=== PATIENT | male | born 1960 | race Caucasian/White ===

== ENCOUNTER 2019-05-08 07:58 | Emergency (ER) | payer SELFPAY ==
[~2019-05-08] VITALS: Ht 182.8 cm; Wt 93.9 kg
--- NOTE | ~2019-05-08 | EKG ---
[place], [place] ELECTROCARDIOGRAM REPORT NAME: DIANA LIN UNIT #: [id number] ROOM: DOCTOR: EPIPHANY DRAFT REPORT BIRTHDATE: [birth year] [facility] Test Date: 2019-05-08 Test Time: 07:58:30 Pat Name: DIANA LIN Department: Room: Gender: Service Parts Coordinator: : 1960 Requested By: MAX QUIJANO Order Number: [id number] Reading MD: Liss Pompa Measurements Intervals [place] Rate: 82 P: 68 FL: 171 QRS: 35 QRSD: 88 T: 54 QT: 366 QTc: 428 Interpretive Statements Sinus rhythm Left atrial enlargement Electronically Signed On 05-08-2019 12:02:44 PDT by Liss Pompa CM:EKGRPT:ELECTROCARDIOGRAM REPORT [id number] MAX BOOKER DRAFT REPORT MAX QUIJANO M.D.
--- NOTE | ~2019-05-08 | EKG ---
[place], [place] ELECTROCARDIOGRAM REPORT NAME: DIANA LIN UNIT #: [id number] ROOM: DOCTOR: EPIPHANY DRAFT REPORT BIRTHDATE: [address] [facility] Test Date: 2019-05-08 Test Time: 11:20:19 Pat Name: DIANA LIN Department: Room: Gender: Home Appliance Installer: Zahra Fisher : 1960 Requested By: MAX QUIJANO Order Number: [id number] Reading MD: Liss Pompa Measurements Intervals [place] Rate: 74 P: 65 RI: 217 QRS: 8 QRSD: 89 T: 61 QT: 391 QTc: 434 Interpretive Statements Sinus rhythm Borderline prolonged RI interval Electronically Signed On 05-08-2019 12:03:10 PDT by Liss Pompa CM:EKGRPT:ELECTROCARDIOGRAM REPORT [id number] MAX BOOKER DRAFT REPORT MAX QUIJANO M.D.
[~2019-05-08 07:58] MED LIST: ASPIRIN81 M1 PO; COREG6.25 MG PO; FISH OIL500 M1 PO; IMDUR SA30 MG PO; LISINOPRIL5 MG PO; LOPID600 M1 PO; OMEPRAZOLE20 M2 PO; PLAVIX75 M1 PO; SYNTHROID25 MCG PO
[2019-05-08 08:13] LABS: BASO # 0.1 10*3/uL (0.0-0.1); BASO % 0.5 % (0.0-1.0); EOS # 0.2 10*3/uL (0.0-0.4); EOS % 1.9 % (1.0-4.0); HEMATOCRIT 45.2 % (42.0-52.0); HEMOGLOBIN 15.1 g/dl (14.0-18.0); LYMPH # 2.7 10*3/uL (1.3-4.4); LYMPH % 29.1 % (27.0-41.0); MEAN CELL VOLUME 88.5 fl (80.0-94.0); MEAN CORPUSCULAR HGB 29.5 pg (27.0-31.0); MEAN CORPUSCULAR HGB CONC 33.4 g/dl (33.0-37.0); MEAN PLATELET VOLUME 10.4 fl (9.6-12.3); MONO # 0.6 10*3/uL (0.1-1.0); MONO % 6.6 % (3.0-9.0); NEUT # 5.7 10*3/uL (2.3-7.9); NEUT % 61.6 % (47.0-73.0); PLATELET COUNT AUTOMATED 236 10*3/uL (130-400); RED BLOOD COUNT 5.11 10*6/uL (4.50-5.90); RED CELL DISTRI WIDTH 13.1 % (0-14.5); WHITE BLOOD COUNT 9.3 10*3/uL (4.8-10.8)
[2019-05-08 08:28] LABS: ACT PARTIAL THROMBO TIME 25.4 SECONDS (20.0-32.1)
[2019-05-08 08:30] LABS: ALBUMIN 3.8 gm/dl (3.1-4.5); ALKALINE PHOSPHATASE 122 U/L (45-117); BUN 12 mg/dl (7-24); CHLORIDE 105 mmol/L (98-107); CREATININE 1.36 mg/dL (0.70-1.30); SGOT/AST 74 IU/L (3-35); SGPT/ALT 58 U/L (12-78); SODIUM 141 mmol/L (136-145); TOTAL PROTEIN 7.5 gm/dL (6.4-8.2)
[2019-05-08 08:33] LABS: TROPONIN I < 0.015 ng/ml (<0.045)
[2019-05-08 11:00] VITALS: BP 146/86
== END 2019-05-08 12:10 | disposition home or self-care (01) ==
LOC: ED 07:58
PROVIDERS: Emergency Medicine
DX: K29.70 Gastritis, unspecified, without bleeding (principal); R07.9 Chest pain, unspecified; I10 Essential (primary) hypertension; I25.10 Atherosclerotic heart disease of native coronary artery without angina pectoris; Z91.013 Allergy to seafood

== ENCOUNTER 2019-05-10 00:06 | Inpatient (IN) | payer SELFPAY ==
[2019-05-10] VITALS (7 sets, daily range): BP systolic 116–150; BP diastolic 59–77
[~2019-05-10] VITALS: Ht 182.9 cm; Wt 96.7 kg
--- NOTE | ~2019-05-10 | EKG ---
[place], [place] ELECTROCARDIOGRAM REPORT NAME: DIANA LIN UNIT #: [id number] ROOM: 403 DOCTOR: ADE DRAFT REPORT BIRTHDATE: [birth year] [facility] Test Date: 2019-05-10 Test Time: 00:06:40 Pat Name: DIANA LIN Department: Room: 403 Gender: M Emergency Care Tech: : 1960 Requested By: DASHA RIOJAS Order Number: [id number] Reading MD: Liss Pompa Measurements Intervals [place] Rate: 93 P: 67 ND: 171 QRS: 21 QRSD: 90 T: 63 QT: 371 QTc: 462 Interpretive Statements Sinus rhythm Left atrial enlargement Compared to ECG 05/08/2019 11:20:19 Atrial abnormality now present Electronically Signed On 05-10-2019 9:45:16 PDT by Liss Pompa CM:EKGRPT:ELECTROCARDIOGRAM REPORT [id number] DASHA BOOKER DRAFT REPORT DASHA RIOJAS MD
--- NOTE | ~2019-05-10 | EKG ---
[place], [place] ELECTROCARDIOGRAM REPORT NAME: DIANA LIN UNIT #: [id number] ROOM: 403 DOCTOR: ADE DRAFT REPORT BIRTHDATE: [birth year] [facility] Test Date: 2019-05-10 Test Time: 02:38:36 Pat Name: DIANA LIN Department: Room: 403 Gender: M Testing Coordinator: Stephanie Butler : 1960 Requested By: DASHA RIOJAS Order Number: [id number] Reading MD: Liss Pompa Measurements Intervals [place] Rate: 84 P: 60 IA: 173 QRS: 17 QRSD: 89 T: 85 QT: 379 QTc: 449 Interpretive Statements Sinus rhythm Baseline wander in lead(s) V1 Compared to ECG 05/08/2019 11:20:19 No significant changes Electronically Signed On 05-10-2019 9:46:33 PDT by Liss Pompa CM:EKGRPT:ELECTROCARDIOGRAM REPORT [id number] DASHA BOOKER DRAFT REPORT DASHA RIOJAS MD
--- NOTE | ~2019-05-10 | EKG ---
[place], [place] ELECTROCARDIOGRAM REPORT NAME: DIANA LIN UNIT #: [id number] ROOM: 403 DOCTOR: ADE DRAFT REPORT BIRTHDATE: [birth year] [facility] Test Date: 2019-05-10 Test Time: 06:41:58 Pat Name: DIANA LIN Department: Room: 403 Gender: M Director Of Casework Department: Cathryn Conde : 1960 Requested By: DASHA RIOJAS Order Number: [id number] Reading MD: Liss Pompa Measurements Intervals [place] Rate: 76 P: 54 [place]: 180 QRS: -1 QRSD: 91 T: 76 QT: 419 QTc: 472 Interpretive Statements Sinus rhythm Baseline wander in lead(s) V2 Compared to ECG 05/08/2019 11:20:19 No significant changes Electronically Signed On 05-10-2019 9:46:36 PDT by Liss Pompa CM:EKGRPT:ELECTROCARDIOGRAM REPORT [id number] DASHA BOOKER DRAFT REPORT DASHA RIOJAS MD
[2019-05-10 00:20] LABS: HEMATOCRIT 44.3 % (42.0-52.0); HEMOGLOBIN 14.9 g/dl (14.0-18.0); MEAN CELL VOLUME 88.1 fl (80.0-94.0); MEAN CORPUSCULAR HGB 29.6 pg (27.0-31.0); MEAN CORPUSCULAR HGB CONC 33.6 g/dl (33.0-37.0); MEAN PLATELET VOLUME 10.3 fl (9.6-12.3); PLATELET COUNT AUTOMATED 217 10*3/uL (130-400); RED BLOOD COUNT 5.03 10*6/uL (4.50-5.90); RED CELL DISTRI WIDTH 13.5 % (0-14.5); WHITE BLOOD COUNT 17.4 10*3/uL (4.8-10.8)
[2019-05-10 00:30] LABS: ACT PARTIAL THROMBO TIME 25.2 SECONDS (20.0-32.1)
[2019-05-10 00:37] LABS: ALBUMIN 4.2 gm/dl (3.1-4.5); ALKALINE PHOSPHATASE 217 U/L (45-117); BUN 11 mg/dl (7-24); CHLORIDE 102 mmol/L (98-107); CREATININE 1.42 mg/dL (0.70-1.30); POTASSIUM 3.7 mmol/L (3.5-5.1); SGOT/AST 281 IU/L (3-35); SGPT/ALT 339 U/L (12-78); SODIUM 136 mmol/L (136-145); TOTAL PROTEIN 7.8 gm/dL (6.4-8.2)
[2019-05-10 00:40] LABS: TROPONIN I < 0.015 ng/ml (<0.045)
[2019-05-10 00:59] LABS: PLATELET SUFFICIENCY NORMAL (NORMAL); TOTAL CELLS COUNTED 100 #CELLS
--- NOTE | 2019-05-10 03:50 | NUR ---
UPDATED ON PLAN FOR ADMISSION. REGISTRATION PROVIDED FINANCIAL ASSISTNACE FORMS DUE TO CONCERNS ABOUT NOT HAVING INSURANCE. IS VERY WORRIED ABOUT PAYING HIS BILL. ASSURED HE WOULD RECEIVE EXCELLENT CARE AND HE COULD WORRY ABOUT THE FINANCIAL CONCERSNA FTER HE IS TAKEN CARE OF. DENIES ANY PAIN AT THIS TIME.
--- NOTE | 2019-05-10 04:42 | NUR ---
Time: 441 A 58 year old MALE admitted to 4E under services of DEJAN MEDEL DO. Pt. arrived via ambulatory from ER. Chief complaint: CHEST/ABD PAIN. JANETT CHILDERS
--- NOTE | 2019-05-10 04:42 | NUR ---
NURSE TO NURSE GIVEN TO ERNESTO.
[2019-05-10] MEDS ORDERED: VISTARIL25 MG PO (05:07)
[2019-05-10] MEDS ORDERED: CETIRIZINE10 MG PO (05:07)
[2019-05-10] MEDS ORDERED: MIRTAZAPINE30 M2 PO (05:08)
[2019-05-10] MEDS ORDERED: PEPCID40 MG PO (05:08)
[2019-05-10] MEDS ORDERED: MELATONIN3 MG PO (05:09)
[2019-05-10] MEDS ORDERED: VIIBRYD40 PO (05:10)
[2019-05-10] MEDS ORDERED: MULTIVITAMINS1 EAC5 PO (05:11)
[2019-05-10 06:40] LABS: BASO % 0.2 % (0.0-1.0); EOS % 0.1 % (1.0-4.0); HEMATOCRIT 39.6 % (42.0-52.0); HEMOGLOBIN 13.4 g/dl (14.0-18.0); LYMPH # 1.3 10*3/uL (1.3-4.4); LYMPH % 7.9 % (27.0-41.0); MEAN CELL VOLUME 87.4 fl (80.0-94.0); MEAN CORPUSCULAR HGB 29.6 pg (27.0-31.0); MEAN CORPUSCULAR HGB CONC 33.8 g/dl (33.0-37.0); MEAN PLATELET VOLUME 10.5 fl (9.6-12.3); MONO # 0.8 10*3/uL (0.1-1.0); NEUT # 13.7 10*3/uL (2.3-7.9); NEUT % 86.4 % (47.0-73.0); PLATELET COUNT AUTOMATED 198 10*3/uL (130-400); RED BLOOD COUNT 4.53 10*6/uL (4.50-5.90); RED CELL DISTRI WIDTH 13.5 % (0-14.5); WHITE BLOOD COUNT 15.9 10*3/uL (4.8-10.8)
[2019-05-10 07:12] LABS: CHLORIDE 110 mmol/L (98-107); POTASSIUM 3.6 mmol/L (3.5-5.1); SODIUM 142 mmol/L (136-145)
[2019-05-10 07:16] LABS: ALBUMIN 3.3 gm/dl (3.1-4.5); ALKALINE PHOSPHATASE 177 U/L (45-117); BUN 10 mg/dl (7-24); CREATININE 1.21 mg/dL (0.70-1.30); SGOT/AST 219 IU/L (3-35); SGPT/ALT 294 U/L (12-78); TOTAL PROTEIN 6.6 gm/dL (6.4-8.2)
--- NOTE | 2019-05-10 09:00 | NUR ---
Pipe And Boiler Covers Supervisor in to talk to patient. Patient states lives at home with alone. There are few steps in the home. Physician: manuel lynch [facility]acy[facility]: none Patient's level of ADLs: INDEPENDENT Patient has working utilities: all working DME: none Follow-up physician's appointment after d/c: will be made by hospitalist nurse director upon discharge Does patient want to access PORTAL?: no Discharge plan discussed with him, patient lives at home alone, he states he is independent in adls and ambulation, he states he doesn't have any insurance and it is sometimes difficulty to pay for medications, he states he will have insurance the first of next month, educated him that he could get his prescriptions filled in the hospital pharmacy for a lowered cost, he would like to do that, also educated him on Angélica from [employer] helping him fill out paperwork for assistance in paying for hospital stay, he declines any other needs at this time. CRISTIN RODRIGUES
--- NOTE | 2019-05-10 11:55 | NUR ---
PT DAUGHTER REFUSED NOON VITALS. PT RESTING WITH EYES CLOSED, RESPS EASY RR 22,NO DISTRESS NOTED. DAUGHTER SITTING AT BEDSIDE WHILE PT RESTS. CALL LIGHT IN REACH.
--- NOTE | 2019-05-10 13:47 | NUR ---
DR GUTHRIE CURRENTLY AT BEDSIDE SPEAKING WITH DAUGHTER.
--- NOTE | 2019-05-10 18:16 | NUR ---
PT TOLERATED LUNCH WELL. VOICES NO C/.O DENIES ABDOMINAL PAIN AT THIS TIME.CALL LIGHT IN REACH.
--- NOTE | 2019-05-10 19:06 | NUR ---
Discharge instructions reviewed with patient/family. Patient receptive and verbalizes understanding. Follow-up care arranged. Written instructions given to patient/family. CARLOS KEY
== END 2019-05-10 19:06 | disposition home or self-care (01) | DRG 444 ==
LOC: ED 00:06 → EDHOLD 03:40 → 4E 04:17
PROVIDERS: Emergency Medicine Emergency Medical Services; Family Medicine; ADMIT Internal Medicine
DX: K80.10 Calculus of gallbladder with chronic cholecystitis without obstruction (principal); N17.0 Acute kidney failure with tubular necrosis; F41.9 Anxiety disorder, unspecified; N40.0 Benign prostatic hyperplasia without lower urinary tract symptoms; F32.9 Major depressive disorder, single episode, unspecified; I10 Essential (primary) hypertension; K21.9 Gastro-esophageal reflux disease without esophagitis; I25.10 Atherosclerotic heart disease of native coronary artery without angina pectoris; E78.5 Hyperlipidemia, unspecified; E80.6 Other disorders of bilirubin metabolism; E03.9 Hypothyroidism, unspecified; G47.00 Insomnia, unspecified; I25.2 Old myocardial infarction; Z87.442 Personal history of urinary calculi; Z95.1 Presence of aortocoronary bypass graft; Z87.891 Personal history of nicotine dependence; Z82.0 Family history of epilepsy and other diseases of the nervous system; Z82.49 Family history of ischemic heart disease and other diseases of the circulatory system; Z91.013 Allergy to seafood; Z79.82 Long term (current) use of aspirin; Z79.899 Other long term (current) drug therapy

== ENCOUNTER 2019-07-14 04:01 | Inpatient (IN) | payer OTHER ==
[~2019-07-14] VITALS: Ht 182.9 cm; Wt 94.3 kg
[~2019-07-14 04:01] MED LIST changes: +CETIRIZINE10 MG PO; +MELATONIN3 MG PO; +MIRTAZAPINE30 M2 PO; +MULTIVITAMINS1 EAC5 PO; +PEPCID40 MG PO; +VIIBRYD40 PO; +VISTARIL25 MG PO
[2019-07-14 04:08] VITALS: BP 159/92
[2019-07-14 04:19] LABS: BASO % 0.1 % (0.0-1.0); EOS % 0.1 % (1.0-4.0); HEMATOCRIT 47.6 % (42.0-52.0); HEMOGLOBIN 16.1 g/dl (14.0-18.0); LYMPH # 1.3 10*3/uL (1.3-4.4); LYMPH % 7.9 % (27.0-41.0); MEAN CELL VOLUME 86.2 fl (80.0-94.0); MEAN CORPUSCULAR HGB 29.2 pg (27.0-31.0); MEAN CORPUSCULAR HGB CONC 33.8 g/dl (33.0-37.0); MEAN PLATELET VOLUME 10.8 fl (9.6-12.3); MONO # 0.5 10*3/uL (0.1-1.0); MONO % 3.1 % (3.0-9.0); NEUT # 15.1 10*3/uL (2.3-7.9); NEUT % 88.6 % (47.0-73.0); PLATELET COUNT AUTOMATED 247 10*3/uL (130-400); RED BLOOD COUNT 5.52 10*6/uL (4.50-5.90)
[2019-07-14 04:58] LABS: LIPASE 189 U/L (73-393)
[2019-07-14 05:05] LABS: ALBUMIN 3.8 gm/dl (3.1-4.5); ALKALINE PHOSPHATASE 131 U/L (45-117); BUN 18 mg/dl (7-24); CHLORIDE 104 mmol/L (98-107); CREATININE 1.62 mg/dL (0.70-1.30); POTASSIUM 3.4 mmol/L (3.5-5.1); SGOT/AST 195 IU/L (3-35); SGPT/ALT 118 U/L (12-78); SODIUM 138 mmol/L (136-145); TOTAL PROTEIN 7.4 gm/dL (6.4-8.2)
[2019-07-14 05:08] LABS: TROPONIN I < 0.015 ng/ml (<0.045)
[2019-07-14 05:12] LABS: ACT PARTIAL THROMBO TIME 23.7 SECONDS (20.0-32.1)
[2019-07-14 06:48] VITALS: BP 122/77
--- NOTE | 2019-07-14 07:01 | NUR ---
BEDSIDE HAND OFF RECEIVED FROM NATY ALVA.
--- NOTE | 2019-07-14 07:45 | NUR ---
A 58, admitted to 5E, under the services of SAMARA Olivas DO with a diagnosis of CHEST PAIN. Chief complaint is CHEST PAIN. Patient arrived via stretcher from ER. Monitor applied. Initial assessment completed. Vital signs taken and recorded. SAMARA OLIVAS DO notified of admission to the unit. Orders received. See assessment for past medical history, medications and allergies. Patient and/or family oriented to unit. [facility] visitation policy reviewed. Clothing/patient valuable form completed. BED IN LOWEST POSITION, SIDE RAILS X2 CALL LIGHT WITHIN REACH. HANS BEAR
[2019-07-14 08:00] VITALS: BP 143/71
--- NOTE | 2019-07-14 08:02 | NUR ---
BEDSIDE HAND OFF AT 0735 TO [facility]. BP 138/70 HR 72 SPO2 96% NO COMPLAINTS OF PAINS OR SOB UPON TRANSFER. SKIN WARM AND DRY
[2019-07-14] MEDS ORDERED: FISH OIL 1,2001 EAC1 PO (08:05)
[2019-07-14 12:00] VITALS: BP 125/69
--- NOTE | 2019-07-14 13:37 | NUR ---
CALL PLACED TO DR. QUINTANILLA, ADVISED HIM O0F CONSULT.
[2019-07-14 16:00] VITALS: BP 137/81
[2019-07-14 20:00] VITALS: BP 135/88
--- NOTE | 2019-07-14 20:00 | NUR ---
RESTING IN BED WITH HOB SLIGHTLY ELEVATED. SKIN WARM & DRY. IV FLUIDS INFUSING INTO LEFT ANTECUBITAL WITHOUT DIFFICULTY; SITE ASYMPTOMATIC. PT. DENIES CHEST PAIN OR ANY PAIN AT THIS TIME. NO DISTRESS NOTED; CALL LIGHT WITHIN REACH.
[2019-07-15] VITALS: BP 127/72; BP 142/72
--- NOTE | 2019-07-15 04:00 | NUR ---
RESTING IN BED WITH EYES CLOSED; CALL LIGHT WITHIN REACH.
[2019-07-15 06:14] LABS: BASO % 0.2 % (0.0-1.0); EOS # 0.3 10*3/uL (0.0-0.4); EOS % 2.8 % (1.0-4.0); HEMATOCRIT 46.7 % (42.0-52.0); HEMOGLOBIN 15.8 g/dl (14.0-18.0); LYMPH # 1.4 10*3/uL (1.3-4.4); LYMPH % 13.8 % (27.0-41.0); MEAN CELL VOLUME 86.6 fl (80.0-94.0); MEAN CORPUSCULAR HGB 29.3 pg (27.0-31.0); MEAN CORPUSCULAR HGB CONC 33.8 g/dl (33.0-37.0); MEAN PLATELET VOLUME 10.9 fl (9.6-12.3); MONO # 0.6 10*3/uL (0.1-1.0); MONO % 5.5 % (3.0-9.0); NEUT # 7.7 10*3/uL (2.3-7.9); NEUT % 77.4 % (47.0-73.0); PLATELET COUNT AUTOMATED 196 10*3/uL (130-400); RED BLOOD COUNT 5.39 10*6/uL (4.50-5.90); RED CELL DISTRI WIDTH 13.6 % (0-14.5)
[2019-07-15 06:42] LABS: ALBUMIN 3.5 gm/dl (3.1-4.5); ALKALINE PHOSPHATASE 153 U/L (45-117); BUN 18 mg/dl (7-24); CHLORIDE 108 mmol/L (98-107); CHOLESTEROL 137 mg/dL (<200); CREATININE 1.19 mg/dL (0.70-1.30); PHOSPHOROUS 2.1 mg/dL (2.5-4.9); POTASSIUM 3.3 mmol/L (3.5-5.1); SGOT/AST 106 IU/L (3-35); SGPT/ALT 151 U/L (12-78); SODIUM 139 mmol/L (136-145); TOTAL PROTEIN 7.4 gm/dL (6.4-8.2); TRIGLYCERIDES 175 mg/dl (<150); VLDL CHOLESTEROL 35 mg/dL (6-40)
[2019-07-15 06:48] LABS: FREE T4 1.12 ng/dl (0.76-1.46); HDL CHOLESTEROL 27 mg/dl (40-60); LDL CHOLESTEROL 75 mg/dL (9-159)
[2019-07-15 06:55] LABS: ACT PARTIAL THROMBO TIME 28.2 SECONDS (20.0-32.1)
[2019-07-15 07:29] LABS: VITAMIN D, 25-HYDROXY 34.1 ng/mL (30-100)
[2019-07-15 08:00] VITALS: BP 148/78
--- NOTE | 2019-07-15 10:51 | NUR ---
HOME MEDICATIONS RETURNED TO PATIENT.IVS REMOVED AND MOTOR BIKE MECHANIC DISCONTINUED. PATIENT UNDERSTANDS AND SINGED DISCHARGE PAPERS. PATIENT REFUSES WHEELCHAIR FOR DISCHARGE.
--- NOTE | 2019-07-15 10:55 | NUR ---
Discharge instructions reviewed with patient/family. Patient receptive and verbalizes understanding. Follow-up care arranged. Written instructions given to patient/family. DISCHARGED WITH SISTER. ILDEFONSO LEON
== END 2019-07-15 10:55 | disposition home or self-care (01) | DRG 444 ==
LOC: ED 04:01 → 5E 06:22 → EDHOLD 06:22 → 5E 06:42
PROVIDERS: Emergency Medicine; Internal Medicine; ADMIT Internal Medicine
DX: K80.70 Calculus of gallbladder and bile duct without cholecystitis without obstruction (principal); N17.0 Acute kidney failure with tubular necrosis; R65.10 Systemic inflammatory response syndrome (SIRS) of non-infectious origin without acute organ dysfunction; K21.9 Gastro-esophageal reflux disease without esophagitis; M94.0 Chondrocostal junction syndrome [Tietze]; R74.0 Nonspecific elevation of levels of transaminase and lactic acid dehydrogenase [LDH]; E87.6 Hypokalemia; D72.829 Elevated white blood cell count, unspecified; R73.9 Hyperglycemia, unspecified; F41.9 Anxiety disorder, unspecified; G47.00 Insomnia, unspecified; N40.0 Benign prostatic hyperplasia without lower urinary tract symptoms; E78.5 Hyperlipidemia, unspecified; F32.9 Major depressive disorder, single episode, unspecified; E03.9 Hypothyroidism, unspecified; I10 Essential (primary) hypertension; E66.3 Overweight; E80.6 Other disorders of bilirubin metabolism; K76.0 Fatty (change of) liver, not elsewhere classified; K29.50 Unspecified chronic gastritis without bleeding; I25.10 Atherosclerotic heart disease of native coronary artery without angina pectoris; Z91.013 Allergy to seafood; Z79.82 Long term (current) use of aspirin; Z82.49 Family history of ischemic heart disease and other diseases of the circulatory system; Z81.8 Family history of other mental and behavioral disorders; Z82.3 Family history of stroke; Z68.28 Body mass index [BMI] 28.0-28.9, adult

== ENCOUNTER 2019-10-30 06:13 | Inpatient (IN) | payer OTHER ==
[2019-10-30] VITALS (8 sets, daily range): BP systolic 120–168; BP diastolic 70–88
[~2019-10-30] VITALS: Ht 182.8 cm; Wt 96.7 kg
[~2019-10-30 06:13] MED LIST changes: +FISH OIL 1,2001 EAC1 PO
[2019-10-30 07:01] LABS: BASO % 0.3 % (0.0-1.0); EOS # 0.2 10*3/uL (0.0-0.4); HEMATOCRIT 45.2 % (42.0-52.0); HEMOGLOBIN 15.4 g/dl (14.0-18.0); LYMPH # 1.7 10*3/uL (1.3-4.4); LYMPH % 10.8 % (27.0-41.0); MEAN CELL VOLUME 86.6 fl (80.0-94.0); MEAN CORPUSCULAR HGB 29.5 pg (27.0-31.0); MEAN CORPUSCULAR HGB CONC 34.1 g/dl (33.0-37.0); MEAN PLATELET VOLUME 9.6 fl (9.6-12.3); MONO # 0.7 10*3/uL (0.1-1.0); MONO % 4.5 % (3.0-9.0); NEUT # 12.8 10*3/uL (2.3-7.9); NEUT % 82.9 % (47.0-73.0); PLATELET COUNT AUTOMATED 206 10*3/uL (130-400); RED BLOOD COUNT 5.22 10*6/uL (4.50-5.90); RED CELL DISTRI WIDTH 13.2 % (0-14.5); WHITE BLOOD COUNT 15.4 10*3/uL (4.8-10.8)
[2019-10-30 07:24] LABS: ALBUMIN 3.8 gm/dl (3.1-4.5); ALKALINE PHOSPHATASE 132 U/L (45-117); BUN 19 mg/dl (7-24); CHLORIDE 104 mmol/L (98-107); CREATININE 1.36 mg/dL (0.70-1.30); LIPASE 153 U/L (73-393); POTASSIUM 3.5 mmol/L (3.5-5.1); SGOT/AST 112 IU/L (3-35); SGPT/ALT 82 U/L (12-78); SODIUM 140 mmol/L (136-145); TOTAL PROTEIN 7.5 gm/dL (6.4-8.2)
[2019-10-30 08:48] LABS: BILIRUBIN NEGATIVE (NEGATIVE); BLOOD NEGATIVE (NEGATIVE); CLARITY SL CLOUDY (CLEAR); COLOR YELLOW (YELLOW); GLUCOSE NEGATIVE (NEGATIVE); KETONE NEGATIVE (NEGATIVE); LEUKO ESTERASE NEGATIVE (NEGATIVE); NITRITE NEGATIVE (NEGATIVE); UROBILINOGEN 0.2 E.U./dl (0.2-1.0)
[2019-10-30 08:53] LABS: BACTERIA TRACE
--- NOTE | 2019-10-30 09:45 | NUR ---
Time: 944 A 58 year old MALE admitted to 5E under services of LUNA BALL DO, Pt. arrived via CART from ER. Chief complaint: GALLBLADDER PAIN. CARLOS KEY
[2019-10-30] MEDS ORDERED: COREG6.25 MG PO (09:47)
[2019-10-30] MEDS ORDERED: ISOSORBIDE30 MG PO (09:48)
[2019-10-30] MEDS ORDERED: LISINOPRIL10 M1 PO (09:50)
[2019-10-30] MEDS ORDERED: PAROXETINE10 MG PO (09:54)
[2019-10-30] MEDS ORDERED: OMEPRAZOLE40 MG PO (09:55)
--- NOTE | 2019-10-30 10:13 | NUR ---
MORPHINE 2 MG GIVEN FOR C/O ABDOMINAL PAIN,07/27.
--- NOTE | 2019-10-30 15:28 | NUR ---
MORPHINE 2 MG GIVEN FOR C/O EPIGASTRIC PAIN,04/26.
[2019-10-30] MEDS ORDERED: PROAIR HFA8.5 GM INH (18:51)
--- NOTE | 2019-10-30 18:53 | NUR ---
NOTIFIED DR MEDINA OF HOME MED LIST RECONCILED.
--- NOTE | 2019-10-30 20:05 | NUR ---
INFORMED THAT PATIENT CALLED AND STATED THAT HE WAS REALLY COLD. UPON ASSESSING PATIENT, NOTED TO BE SHIVERING INTENSIVELY, TYPANIC TEMP OF 102.1 YK=841 RESP=48 PX=546/70 SPO2 100% ON ROOM AIR. STATED TO GIVE PO TYLENOL WITH SMALL SIPS OF WATER AND WILL BE UP TO SEE PATIENT
--- NOTE | 2019-10-30 20:06 | NUR ---
PO TYLENOL GIVEN FOR TEMP OF 102.1
--- NOTE | 2019-10-30 20:07 | NUR ---
IN TO SEE PATIENT.
--- NOTE | 2019-10-30 20:07 | NUR ---
HR 140-150'S PER PULSE OX MACHINE. DR SUN IN AN AWARE.
--- NOTE | 2019-10-30 20:28 | NUR ---
AND LEFT ROOM AT THIS TIME. ORDERS IN PLACE PER WISHES
--- NOTE | 2019-10-30 20:30 | NUR ---
[facility] RESPONSE CALLED FOR AMS AT THIS TIME, PATIENT ALSO INCONT OF BOWEL AND BLADDER WITH SEVERE DIAPHORESIS.
--- NOTE | 2019-10-30 20:50 | NUR ---
PATIENT TRANSFERRED TO ICC[facility] ROOM 6. REPORT GIVEN TO SHELIA, STATED THAT SHE WILL CALL WITH UPDATE.
[2019-10-30 20:53] LABS: ABG BASE EXCESS -3.8 mmol/L (-2.0-2.0); ARTERIAL BLOOD GAS PH 7.425 (7.35-7.45)
--- NOTE | 2019-10-30 20:55 | NUR ---
2049 RECEIVED IN ICCU #6 VIA BED WITH BELONGINGS. PT IS ALERT. VERY DIAPHORETIC. COLOR PALE. PULSE OX 88% ON RA. APPLIED AT 3L. PULSE OX UP TO 91%. C/O NAUSEA. TEMP 102.3 TYMPANIC. REPORT RECEIVED.
--- NOTE | 2019-10-30 21:08 | NUR ---
PATIENT'S FATHER PHUC MADE AWARE THAT PATIENT'S STATUS AND MOVED TO ICCU ROOM 6. STATED OK
--- NOTE | 2019-10-30 21:35 | NUR ---
Spo2 89% on 4 l/m, patient placed on 6L Hi Juliocesar cannula, Spo2 94%.
--- NOTE | 2019-10-30 23:15 | NUR ---
DR QUINTANILLA NORTIFIED OF TRANSFER AND INFORMED OF PERTINENT INFORMATION AND PT STATUS. NO NEW ORDERS RECEIVED.
[2019-10-30 23:47] LABS: ABG BASE EXCESS -3.5 mmol/L (-2.0-2.0); ARTERIAL BLOOD GAS PH 7.388 (7.35-7.45)
[2019-10-31] VITALS (7 sets, daily range): BP systolic 94–104; BP diastolic 50–68
--- NOTE | 2019-10-31 00:38 | NUR ---
DR SUN NOTIFIED OF TROPONIN 0.270.
--- NOTE | 2019-10-31 00:57 | NUR ---
DR SOLIS NOTIFIED OF CONSULT AND INFORMED OF PERTINENT INFORMATION. ELEVATED TROPONIN 0.270. NO NEW ORDERS AT THIS TIME AND STATES WILL SEE PT IN AM.
[2019-10-31 04:54] LABS: HEMATOCRIT 39.3 % (42.0-52.0); HEMOGLOBIN 13.3 g/dl (14.0-18.0); MEAN CELL VOLUME 86.8 fl (80.0-94.0); MEAN CORPUSCULAR HGB 29.4 pg (27.0-31.0); MEAN CORPUSCULAR HGB CONC 33.8 g/dl (33.0-37.0); MEAN PLATELET VOLUME 10.4 fl (9.6-12.3); RED BLOOD COUNT 4.53 10*6/uL (4.50-5.90); RED CELL DISTRI WIDTH 13.7 % (0-14.5); WHITE BLOOD COUNT 19.3 10*3/uL (4.8-10.8)
[2019-10-31 05:11] LABS: ALBUMIN 2.9 gm/dl (3.1-4.5); CREATININE 1.69 mg/dL (0.70-1.30); PHOSPHOROUS 1.9 mg/dL (2.5-4.9); POTASSIUM 3.4 mmol/L (3.5-5.1); TOTAL PROTEIN 6.2 gm/dL (6.4-8.2)
[2019-10-31 05:28] LABS: PLATELET COUNT AUTOMATED 138 10*3/uL (130-400)
[2019-10-31 05:33] LABS: TOTAL CELLS COUNTED 100 #CELLS
[2019-10-31 05:34] LABS: PLATELET SUFFICIENCY NORMAL (NORMAL)
--- NOTE | 2019-10-31 07:18 | NUR ---
Shift chart check completed.
--- NOTE | 2019-10-31 08:10 | NUR ---
DR SOCORRO RICHEY AND SURGERY CANCELLED FOR TODAY - WILL DISCUSS WITH CARDIOLOGY FOR CLEARANCE THEN WILL RESCHEDULE
--- NOTE | 2019-10-31 09:38 | NUR ---
DR MEDINA ROUNDED - 2 UNSUCCESSFUL ATTEMPTS PER POLICY FOR A SECOND IV. PT TOLERATED WEL. UP IN CHAIR. K-PHOS INFUSING VIA ASYMPTOMATIC SITE
--- NOTE | 2019-10-31 10:30 | NUR ---
Customer Order Clerk in to talk to patient. Patient states lives at home alone with his sister and [id number] checking in on her. There are 16 steps in the home. Physician: Dr. Justin Hinkle Pharmacy: [facility] Home health services: none Patient's level of ADLs: INDEPENDENT Patient has working utilities: yes DME: none Follow-up physician's appointment after d/c: will be made by the hospitalist nurse director upon discharge Does patient want to access PORTAL?: no Discharge plan discussed with patient. He is sitting up in his bedside chair. He lives at home alone with his family checking in on him. He is independent in his ADLs and ambulation. Discussed home health care services and he denies any home needs at this time. When medically stable he will be discharged to home. He states his sister or brother will provide transportation on discharge. CARMELO DAS
--- NOTE | 2019-10-31 10:56 | NUR ---
PATIENT SITTING UP IN CHAIR WITH SUDDEN ONSET OF CHILS/SHIVERING. TEMP CHECK & FOUND TO BE 100T...DR SÁNCHEZ AWARE
--- NOTE | 2019-10-31 11:31 | NUR ---
TYLENOL GIVEN FOR ELEVATED TEMP 100.6 T.. LESS SHIVERING & CHILLS THAN EARLIER. REMAINS SITTING UP IN CHAIR
--- NOTE | 2019-10-31 11:43 | NUR ---
ID CALLED WITH CONSULT
--- NOTE | 2019-10-31 12:49 | NUR ---
DR SOLIS ROUNDED AND PATIENT IS CLEARED FOR SURGERY PENDING ANY ISSUES ON THE ECHO. HE WILL RETURN IF THERE ARE ANY CHANGES AND HE WILL REVIEW THE MEDICATIONS HE IS ON AND MAKE ANY NEEDED ADJUSTMENTS. DISCUSSED WITH THE PATIENT INTERMEDIATE RISK AND NO GUARANTEES CAN BE GIVEN BUT THAT THE PROBLEM OCCURED DUE TO WHAT IS GOING ON IN THE ABDOMEN & HE FEELS SURGERY IS THE BEST TREATMENT OPTION. PATIENT VOICED UNDERSTANDING. DR SOLIS SPOKE WITH DR MEDINA & DR CAMPOS.
--- NOTE | 2019-10-31 12:58 | NUR ---
DR QUINTANILLA HERE AND REQUESTED MORE LABS PRIOR TO DECIDING IF SURGERY WOULD PROGRESS TOMORROW. WILL CALL WITH LABS & ECHO REPORT
--- NOTE | 2019-10-31 13:00 | NUR ---
DR QUINTANILLA HERE AND SPOKE WITH THE PATIENT. REPEAT LABS ORDERED PRIOR TO DECIDING IF SURGERY WILL PROGRESS. WILL CALL WITH ECHO RESULTS.
--- NOTE | 2019-10-31 13:01 | NUR ---
DR CAMPOS HERE AND ROUNDED
[2019-10-31 13:20] LABS: INTERNATIONAL NORM RATIO 1.4 (2.0-3.5)
[2019-10-31 13:26] LABS: CREATININE 1.73 mg/dL (0.70-1.30); POTASSIUM 3.8 mmol/L (3.5-5.1); TOTAL PROTEIN 6.5 gm/dL (6.4-8.2)
--- NOTE | 2019-10-31 13:38 | NUR ---
DR PATINO - RESIDENT WITH DR TALLEY - HERE AND SPOKE WITH THE PATIENT. NO NEW ORDRES AT THIS TIME
--- NOTE | 2019-10-31 14:40 | NUR ---
IVF HUNG PER ORDERS.. PRN MEDS FOR ANXIETY GIVEN HE TAKES AT HOME.
--- NOTE | 2019-10-31 17:55 | NUR ---
PATIENT HAS C/O EPIGASTRIC DISCOMFORT OCC BURNING OR PRESSURE. ZOFRAN GIVEN
--- NOTE | 2019-10-31 18:45 | NUR ---
PATIENT C/O MORE EPIGASTRIC PAIN & THE ANXIETY IS CAUSING HIS BACK & SHOULDERS TO TIGHTEN UP. PT C/O CHILLS & IS SHIVERING. TEMP NOW 100.9 & TYLENOL GIVEN
--- NOTE | 2019-10-31 19:27 | NUR ---
PER PATIENT CHILLS ARE GONE, EPIGASTRIC PAIN IS NOW MINIMAL. VOIDED DK PAT URINE
--- NOTE | 2019-10-31 20:02 | NUR ---
PT STATES "FEELING BETTER". SKIN W/D. DENIES PAIN OR NAUSEA AT THIS TIME.
[2019-11-01] VITALS (12 sets, daily range): BP systolic 91–145; BP diastolic 53–83
--- NOTE | 2019-11-01 02:03 | NUR ---
PT SLEEPING. REMAINS NPO SINCE MIDNIGHT.
--- NOTE | 2019-11-01 05:29 | NUR ---
DR QUINTANILLA CALLS IN. CONDITION REVIEWED.
--- NOTE | 2019-11-01 06:15 | NUR ---
FABIENNE BATH DONE WITH ASSIST. AWAITING LABWORK RESULTS TO CALL DR QUINTANILLA.
[2019-11-01 06:23] LABS: HEMATOCRIT 34.5 % (42.0-52.0); HEMOGLOBIN 11.8 g/dl (14.0-18.0); MEAN CORPUSCULAR HGB 29.4 pg (27.0-31.0); MEAN CORPUSCULAR HGB CONC 34.2 g/dl (33.0-37.0); MEAN PLATELET VOLUME 11.3 fl (9.6-12.3); RED BLOOD COUNT 4.01 10*6/uL (4.50-5.90); RED CELL DISTRI WIDTH 14.1 % (0-14.5); WHITE BLOOD COUNT 13.6 10*3/uL (4.8-10.8)
[2019-11-01 06:24] LABS: ALBUMIN 2.5 gm/dl (3.1-4.5); CREATININE 2.02 mg/dL (0.70-1.30); PHOSPHOROUS 2.8 mg/dL (2.5-4.9); POTASSIUM 3.3 mmol/L (3.5-5.1); TOTAL PROTEIN 5.8 gm/dL (6.4-8.2)
[2019-11-01 06:26] LABS: PLATELET COUNT AUTOMATED 88 10*3/uL (130-400)
--- NOTE | 2019-11-01 06:27 | NUR ---
DR QUINTANILLA CALLS. RESULTED LABWORK CONVEYED TO HIM. HE IS GOING TO CALL SURGERY TO SCHEDULE FOR THIS AM.
[2019-11-01 06:32] LABS: INTERNATIONAL NORM RATIO 1.3 (2.0-3.5)
--- NOTE | 2019-11-01 06:36 | NUR ---
SURGERY HERE TO TAKE PT FOR PROCEDURE. REPORT GIVEN TO THEM. CHART, WITH SURGERY PACKET, GIVEN TO THEM. ALLERGY BAND ON.
[2019-11-01 07:06] LABS: PLATELET SUFFICIENCY LOW (NORMAL); TOTAL CELLS COUNTED 100 #CELLS
[2019-11-01 07:07] LABS: TARGET CELLS FEW
--- NOTE | 2019-11-01 10:10 | NUR ---
BACK FROM OR. ALERT AND ORIENTED TIMES THREE. EYES JAUNDICED. LUNGS CLEAR BILATERALLY. NO EDEMA NOTED. PULSE OX 94% ON ROOM AIR. BP 136/75. AFEBRILE.
--- NOTE | 2019-11-01 11:00 | NUR ---
Venetian Blind Worker in to see patient. No new needs or request at this time. He denies any home needs. When medically stable he will be discharged to home.
--- NOTE | 2019-11-01 19:16 | NUR ---
Shift chart check completed.24 HR chart check completed.
--- NOTE | 2019-11-01 20:17 | NUR ---
ON ASSESSMENT PT RESTING EASILY IN BED, WATCHING TV. NO VOICED COMPLAINTS OF PAIN. TROCAR SITES (GLUED) WITH NO BLEEDING OR DRAINAGE. IV FLUIDS CONTINUE. TEDS/SCD'S IN PLACE. PT ENCOURAGED TO COUGH AND DEEP BREATHE.SEE ALL APPROPRIATE INTERVENTIONS.
[2019-11-02] VITALS: BP 142/71
--- NOTE | 2019-11-02 01:54 | NUR ---
SLEEPING EASILY. NO DYSRHYTHMIAS.
--- NOTE | 2019-11-02 03:45 | NUR ---
AWAKE SITTING AT SIDE OF BED TO VOID. NO C/O PAIN, NAUSEA OR SHORTNESS OF BREATH.
[2019-11-02 04:00] VITALS: BP 168/94
[2019-11-02 05:40] LABS: BUN 22 mg/dl (7-24); CHLORIDE 113 mmol/L (98-107); CREATININE 1.35 mg/dL (0.70-1.30); PHOSPHOROUS 1.6 mg/dL (2.5-4.9); POTASSIUM 4.1 mmol/L (3.5-5.1); SODIUM 142 mmol/L (136-145)
[2019-11-02 06:29] LABS: HEMATOCRIT 34.8 % (42.0-52.0); HEMOGLOBIN 11.8 g/dl (14.0-18.0); MEAN CELL VOLUME 85.3 fl (80.0-94.0); MEAN CORPUSCULAR HGB 28.9 pg (27.0-31.0); MEAN CORPUSCULAR HGB CONC 33.9 g/dl (33.0-37.0); MEAN PLATELET VOLUME 11.9 fl (9.6-12.3); PLATELET COUNT AUTOMATED 116 10*3/uL (130-400); RED BLOOD COUNT 4.08 10*6/uL (4.50-5.90); RED CELL DISTRI WIDTH 14.3 % (0-14.5); WHITE BLOOD COUNT 13.9 10*3/uL (4.8-10.8)
[2019-11-02 06:51] LABS: TOTAL CELLS COUNTED 100 #CELLS
[2019-11-02 06:52] LABS: PLATELET SUFFICIENCY LOW (NORMAL)
--- NOTE | 2019-11-02 07:30 | NUR ---
DR QUINTANILLA HERE TO SEE PATIENT
[2019-11-02 08:00] VITALS: BP 173/94
[2019-11-02 08:04] LABS: ALBUMIN 2.4 gm/dl (3.1-4.5); ALKALINE PHOSPHATASE 112 U/L (45-117); CHLORIDE 113 mmol/L (98-107); POTASSIUM 4.1 mmol/L (3.5-5.1); SGOT/AST 53 IU/L (3-35); SGPT/ALT 69 U/L (12-78); SODIUM 142 mmol/L (136-145); TOTAL PROTEIN 6.3 gm/dL (6.4-8.2)
[2019-11-02 08:05] LABS: BUN 22 mg/dl (7-24); CREATININE 1.35 mg/dL (0.70-1.30)
--- NOTE | 2019-11-02 09:00 | NUR ---
RESTING IN BED. DENIES ANY PAIN OR COMPLAINTS.
[2019-11-02] MEDS ORDERED: AUGMENTIN 875875 MG PO (11:04)
[2019-11-02 12:00] VITALS: BP 149/94
[2019-11-02] MEDS ORDERED: ASPIRIN CHEWABL81 MG PO (12:31)
--- NOTE | 2019-11-02 14:36 | NUR ---
Discharge instructions reviewed with patient/family. Patient receptive and verbalizes understanding. Follow-up care arranged. Written instructions given to patient/family. CALLIE GOMEZ
[2019-11-03 15:47] LABS: INFLUENZA A ANTIBODIES Negative
[2019-11-03 15:50] LABS: INFLUENZA B ANTIBODIES Negative
== END 2019-11-02 14:36 | disposition home or self-care (01) | DRG 853 ==
LOC: ED 06:13 → ICCU 08:29 → 5E 08:29 → EDHOLD 08:29 → 5E 09:01 → ICCU 20:53
PROVIDERS: Emergency Medicine; Internal Medicine; Student in an Organized Health Care Education/Training Program; ADMIT Internal Medicine
PROC: 0FT44ZZ Resection of Gallbladder, Percutaneous Endoscopic Approach (ICD-10-PCS; principal; 2019-11-01)
DX: A41.51 Sepsis due to Escherichia coli [E. coli] (principal); N17.0 Acute kidney failure with tubular necrosis; K80.00 Calculus of gallbladder with acute cholecystitis without obstruction; K83.09 Other cholangitis; R73.9 Hyperglycemia, unspecified; E80.6 Other disorders of bilirubin metabolism; N18.3 Chronic kidney disease, stage 3 (moderate); F41.9 Anxiety disorder, unspecified; N40.0 Benign prostatic hyperplasia without lower urinary tract symptoms; K21.9 Gastro-esophageal reflux disease without esophagitis; E78.5 Hyperlipidemia, unspecified; F32.9 Major depressive disorder, single episode, unspecified; E03.9 Hypothyroidism, unspecified; I25.10 Atherosclerotic heart disease of native coronary artery without angina pectoris; B96.1 Klebsiella pneumoniae [K. pneumoniae] as the cause of diseases classified elsewhere; I12.9 Hypertensive chronic kidney disease with stage 1 through stage 4 chronic kidney disease, or unspecified chronic kidney disease; Z87.891 Personal history of nicotine dependence; Z95.1 Presence of aortocoronary bypass graft; I25.2 Old myocardial infarction; Z91.013 Allergy to seafood; Z79.82 Long term (current) use of aspirin; Z79.899 Other long term (current) drug therapy; Z82.3 Family history of stroke; Z82.0 Family history of epilepsy and other diseases of the nervous system; Z82.49 Family history of ischemic heart disease and other diseases of the circulatory system

== ENCOUNTER → 2019-11-23 | Outpatient (CLI) | payer OTHER ==
[~2019-11-23] MED LIST changes: +ASPIRIN CHEWABL81 MG PO; +AUGMENTIN 875875 MG PO; +ISOSORBIDE30 MG PO; +LISINOPRIL10 M1 PO; +OMEPRAZOLE40 MG PO; +PAROXETINE10 MG PO; +PROAIR HFA8.5 GM INH
== END | disposition home or self-care (01) ==
LOC: RESCLI 00:16
DX: Z76.89 Persons encountering health services in other specified circumstances (principal); J30.9 Allergic rhinitis, unspecified; N40.0 Benign prostatic hyperplasia without lower urinary tract symptoms; I10 Essential (primary) hypertension; F41.9 Anxiety disorder, unspecified; F32.9 Major depressive disorder, single episode, unspecified; K21.9 Gastro-esophageal reflux disease without esophagitis; E78.5 Hyperlipidemia, unspecified; E03.9 Hypothyroidism, unspecified; F51.01 Primary insomnia; I25.2 Old myocardial infarction; J44.9 Chronic obstructive pulmonary disease, unspecified; I25.810 Atherosclerosis of coronary artery bypass graft(s) without angina pectoris; Z95.1 Presence of aortocoronary bypass graft; Z79.899 Other long term (current) drug therapy; Z90.49 Acquired absence of other specified parts of digestive tract; Z87.891 Personal history of nicotine dependence; Z88.8 Allergy status to other drugs, medicaments and biological substances

== ENCOUNTER → 2019-12-20 | Outpatient (CLI) | payer OTHER ==
[2019-12-20 13:52] LABS: BASO % 0.5 % (0.0-1.0); EOS # 0.2 10*3/uL (0.0-0.4); EOS % 2.6 % (1.0-4.0); HEMATOCRIT 47.7 % (42.0-52.0); HEMOGLOBIN 16.1 g/dl (14.0-18.0); LYMPH # 2.7 10*3/uL (1.3-4.4); LYMPH % 40.5 % (27.0-41.0); MEAN CELL VOLUME 84.6 fl (80.0-94.0); MEAN CORPUSCULAR HGB 28.5 pg (27.0-31.0); MEAN CORPUSCULAR HGB CONC 33.8 g/dl (33.0-37.0); MEAN PLATELET VOLUME 10.2 fl (9.6-12.3); MONO # 0.4 10*3/uL (0.1-1.0); MONO % 6.4 % (3.0-9.0); NEUT # 3.3 10*3/uL (2.3-7.9); NEUT % 49.8 % (47.0-73.0); PLATELET COUNT AUTOMATED 272 10*3/uL (130-400); RED BLOOD COUNT 5.64 10*6/uL (4.50-5.90); RED CELL DISTRI WIDTH 13.5 % (0-14.5); WHITE BLOOD COUNT 6.5 10*3/uL (4.8-10.8)
[2019-12-20 14:25] LABS: CREATININE 1.48 mg/dL (0.70-1.30); POTASSIUM 3.9 mmol/L (3.5-5.1)
[2019-12-20 14:42] LABS: VITAMIN D, 25-HYDROXY 33.7 ng/mL (30-100)
== END | disposition home or self-care (01) ==
LOC: LAB 13:16
PROVIDERS: Internal Medicine
DX: I13.10 Hypertensive heart and chronic kidney disease without heart failure, with stage 1 through stage 4 chronic kidney disease, or unspecified chronic kidney disease (principal); N18.3 Chronic kidney disease, stage 3 (moderate); Z76.89 Persons encountering health services in other specified circumstances; Z79.899 Other long term (current) drug therapy

== ENCOUNTER 2020-02-19 14:07 | Emergency (ER) | payer OTHER ==
[~2020-02-19] VITALS: Ht 182.8 cm; Wt 87.1 kg
[2020-02-19 14:15] VITALS: BP 151/93
[2020-02-19 15:02] LABS: BASO % 0.5 % (0.0-1.0); EOS # 0.2 10*3/uL (0.0-0.4); EOS % 2.4 % (1.0-4.0); HEMATOCRIT 44.7 % (42.0-52.0); LYMPH # 2.6 10*3/uL (1.3-4.4); MEAN CELL VOLUME 84.5 fl (80.0-94.0); MEAN CORPUSCULAR HGB 28.9 pg (27.0-31.0); MEAN CORPUSCULAR HGB CONC 34.2 g/dl (33.0-37.0); MEAN PLATELET VOLUME 9.9 fl (9.6-12.3); MONO # 0.4 10*3/uL (0.1-1.0); MONO % 5.8 % (3.0-9.0); NEUT # 4.2 10*3/uL (2.3-7.9); NEUT % 56.2 % (47.0-73.0); PLATELET COUNT AUTOMATED 258 10*3/uL (130-400); RED BLOOD COUNT 5.29 10*6/uL (4.50-5.90); WHITE BLOOD COUNT 7.4 10*3/uL (4.8-10.8)
[2020-02-19 15:22] LABS: ALBUMIN 4.3 gm/dl (3.1-4.5); ALKALINE PHOSPHATASE 97 U/L (45-117); BUN 19 mg/dl (7-24); CHLORIDE 108 mmol/L (98-107); CREATININE 1.25 mg/dL (0.70-1.30); POTASSIUM 4.2 mmol/L (3.5-5.1); SGOT/AST 17 IU/L (3-35); SGPT/ALT 26 U/L (12-78); SODIUM 141 mmol/L (136-145); TOTAL PROTEIN 8.1 gm/dL (6.4-8.2)
== END 2020-02-19 16:48 | disposition home or self-care (01) ==
LOC: ED 14:07
PROVIDERS: Family Medicine
DX: J45.901 Unspecified asthma with (acute) exacerbation (principal); I12.9 Hypertensive chronic kidney disease with stage 1 through stage 4 chronic kidney disease, or unspecified chronic kidney disease; N18.3 Chronic kidney disease, stage 3 (moderate); J45.909 Unspecified asthma, uncomplicated; I25.10 Atherosclerotic heart disease of native coronary artery without angina pectoris; K21.9 Gastro-esophageal reflux disease without esophagitis; E03.9 Hypothyroidism, unspecified; E78.5 Hyperlipidemia, unspecified; I25.2 Old myocardial infarction; F17.200 Nicotine dependence, unspecified, uncomplicated; Z98.61 Coronary angioplasty status; Z91.013 Allergy to seafood; Z79.2 Long term (current) use of antibiotics; Z79.82 Long term (current) use of aspirin; Z79.899 Other long term (current) drug therapy; Z90.49 Acquired absence of other specified parts of digestive tract

== ENCOUNTER → 2020-02-19 | Outpatient (CLI) | payer OTHER | END | disposition home or self-care (01) | LOC: COVID19 13:36 | DX: B34.9 Viral infection, unspecified (principal); Z03.818 Encounter for observation for suspected exposure to other biological agents ruled out; Z78.9 Other specified health status; Z79.82 Long term (current) use of aspirin; Z79.899 Other long term (current) drug therapy ==

== ENCOUNTER → 2020-05-20 | Outpatient (CLI) | payer OTHER | END | disposition home or self-care (01) | LOC: RESCLI 00:48 | DX: R21 Rash and other nonspecific skin eruption (principal); I10 Essential (primary) hypertension; K21.9 Gastro-esophageal reflux disease without esophagitis; E03.9 Hypothyroidism, unspecified; I25.2 Old myocardial infarction; Z79.899 Other long term (current) drug therapy; Z79.82 Long term (current) use of aspirin; Z23 Encounter for immunization; Z98.890 Other specified postprocedural states; Z90.49 Acquired absence of other specified parts of digestive tract; Z95.1 Presence of aortocoronary bypass graft; Z87.891 Personal history of nicotine dependence; Z91.013 Allergy to seafood ==

== ENCOUNTER → 2020-09-02 | Outpatient (CLI) | payer OTHER | END | disposition home or self-care (01) | LOC: RESCLI 01:19 | PROVIDERS: ATTEND Internal Medicine Nephrology | DX: R21 Rash and other nonspecific skin eruption (principal); F32.5 Major depressive disorder, single episode, in full remission; F41.9 Anxiety disorder, unspecified; I25.810 Atherosclerosis of coronary artery bypass graft(s) without angina pectoris; I10 Essential (primary) hypertension; E78.5 Hyperlipidemia, unspecified; E03.9 Hypothyroidism, unspecified; J45.909 Unspecified asthma, uncomplicated; E66.3 Overweight; Z68.25 Body mass index [BMI] 25.0-25.9, adult; Z79.899 Other long term (current) drug therapy; Z87.891 Personal history of nicotine dependence; Z98.890 Other specified postprocedural states; Z91.013 Allergy to seafood ==

== ENCOUNTER → 2022-03-12 | Outpatient (CLI) | payer OTHER ==
[2022-03-12 12:49] LABS: BASO % 0.7 % (0.0-1.0); EOS # 0.2 10*3/uL (0.0-0.4); EOS % 3.6 % (1.0-4.0); HEMATOCRIT 45.3 % (42.0-52.0); LYMPH # 2.1 10*3/uL (1.3-4.4); LYMPH % 33.7 % (27.0-41.0); MEAN CORPUSCULAR HGB 29.3 pg (27.0-31.0); MEAN CORPUSCULAR HGB CONC 34.4 g/dl (33.0-37.0); MEAN PLATELET VOLUME 10.2 fl (9.6-12.3); MONO # 0.4 10*3/uL (0.1-1.0); MONO % 7.1 % (3.0-9.0); NEUT # 3.3 10*3/uL (2.3-7.9); NEUT % 54.7 % (47.0-73.0); PLATELET COUNT AUTOMATED 245 10*3/uL (130-400); RED BLOOD COUNT 5.33 10*6/uL (4.50-5.90); RED CELL DISTRI WIDTH 13.2 % (0-14.5); WHITE BLOOD COUNT 6.1 10*3/uL (4.8-10.8)
[2022-03-12 13:06] LABS: ALKALINE PHOSPHATASE 107 U/L (45-117); BUN 11 mg/dl (7-24); CHLORIDE 110 mmol/L (98-107); CHOLESTEROL 186 mg/dL (<200); CREATININE 1.24 mg/dL (0.70-1.30); LDL CHOLESTEROL 105 mg/dL (9-159); POTASSIUM 4.3 mmol/L (3.5-5.1); SGOT/AST 12 IU/L (3-35); SGPT/ALT 27 U/L (12-78); SODIUM 141 mmol/L (136-145); TOTAL PROTEIN 7.7 gm/dL (6.4-8.2); TRIGLYCERIDES 205 mg/dl (<150)
== END | disposition home or self-care (01) ==
LOC: RESCLI 01:45
PROVIDERS: Student in an Organized Health Care Education/Training Program; ATTEND Internal Medicine
DX: I10 Essential (primary) hypertension (principal); E78.5 Hyperlipidemia, unspecified; I25.810 Atherosclerosis of coronary artery bypass graft(s) without angina pectoris; E03.9 Hypothyroidism, unspecified; Z95.1 Presence of aortocoronary bypass graft; Z79.82 Long term (current) use of aspirin; F41.9 Anxiety disorder, unspecified; J45.909 Unspecified asthma, uncomplicated; F32.5 Major depressive disorder, single episode, in full remission; F51.01 Primary insomnia; R21 Rash and other nonspecific skin eruption; Z86.010 Personal history of colon polyps

== ENCOUNTER → 2023-01-27 | Outpatient (CLI) | payer OTHER ==
[2023-01-27 13:02] LABS: BASO % 0.6 % (0.0-1.0); EOS # 0.2 10*3/uL (0.0-0.4); EOS % 3.7 % (1.0-4.0); LYMPH # 2.6 10*3/uL (1.3-4.4); LYMPH % 41.5 % (27.0-41.0); MEAN CELL VOLUME 87.8 fl (80.0-94.0); MEAN CORPUSCULAR HGB 29.6 pg (27.0-31.0); MEAN CORPUSCULAR HGB CONC 33.7 g/dl (33.0-37.0); MEAN PLATELET VOLUME 10.2 fl (9.6-12.3); MONO # 0.5 10*3/uL (0.1-1.0); MONO % 8.2 % (3.0-9.0); NEUT # 2.8 10*3/uL (2.3-7.9); NEUT % 45.8 % (47.0-73.0); PLATELET COUNT AUTOMATED 228 10*3/uL (130-400); RED BLOOD COUNT 5.24 10*6/uL (4.50-5.90); RED CELL DISTRI WIDTH 13.2 % (0-14.5); WHITE BLOOD COUNT 6.2 10*3/uL (4.8-10.8)
[2023-01-27 13:55] LABS: ALKALINE PHOSPHATASE 105 U/L (46-116); BUN 10 mg/dl (9-23); CHLORIDE 108 mmol/L (98-107); CHOLESTEROL 180 mg/dL (<200); LDL CHOLESTEROL 102 mg/dL (9-159); POTASSIUM 4.4 mmol/L (3.4-5.1); SGPT/ALT 12 U/L (10-49); TOTAL PROTEIN 7.7 gm/dL (6.0-8.0); TRIGLYCERIDES 198 mg/dl (<150)
== END | disposition home or self-care (01) ==
LOC: RESCLI 11:08
PROVIDERS: Student in an Organized Health Care Education/Training Program; ATTEND Internal Medicine
DX: I10 Essential (primary) hypertension (principal); E78.5 Hyperlipidemia, unspecified; E03.9 Hypothyroidism, unspecified; F41.9 Anxiety disorder, unspecified; I25.810 Atherosclerosis of coronary artery bypass graft(s) without angina pectoris; F51.01 Primary insomnia; R21 Rash and other nonspecific skin eruption; Z87.891 Personal history of nicotine dependence; Z12.2 Encounter for screening for malignant neoplasm of respiratory organs; Z79.899 Other long term (current) drug therapy

== ENCOUNTER → 2024-05-24 | Outpatient (CLI) | payer MEDICARE ==
[2024-05-24 17:26] LABS: BASO % 0.5 % (0.0-1.0); EOS # 0.4 10*3/uL (0.0-0.4); EOS % 5.3 % (1.0-4.0); HEMATOCRIT 43.5 % (42.0-52.0); MEAN CELL VOLUME 85.8 fl (80.0-94.0); MEAN CORPUSCULAR HGB 29.2 pg (27.0-31.0); MEAN PLATELET VOLUME 9.8 fl (9.6-12.3); MONO # 0.6 10*3/uL (0.1-1.0); MONO % 7.6 % (3.0-9.0); NEUT % 49.4 % (47.0-73.0); PLATELET COUNT AUTOMATED 255 10*3/uL (130-400); RED BLOOD COUNT 5.07 10*6/uL (4.50-5.90); RED CELL DISTRI WIDTH 12.8 % (0-14.5); WHITE BLOOD COUNT 8.1 10*3/uL (4.8-10.8)
[2024-05-24 17:53] LABS: BUN 8 mg/dl (9-23); CHLORIDE 106 mmol/L (98-107); CHOLESTEROL 137 mg/dL (<200); LDL CHOLESTEROL 66 mg/dL (9-159); POTASSIUM 4.1 mmol/L (3.4-5.1); TRIGLYCERIDES 154 mg/dl (<150)
== END | disposition home or self-care (01) ==
LOC: RESCLI 00:35
PROVIDERS: Student in an Organized Health Care Education/Training Program; ATTEND Internal Medicine
DX: I25.810 Atherosclerosis of coronary artery bypass graft(s) without angina pectoris (principal); E03.9 Hypothyroidism, unspecified; E78.5 Hyperlipidemia, unspecified; F41.9 Anxiety disorder, unspecified; I10 Essential (primary) hypertension; Z87.891 Personal history of nicotine dependence; Z91.013 Allergy to seafood; Z82.49 Family history of ischemic heart disease and other diseases of the circulatory system; Z79.899 Other long term (current) drug therapy